=== PATIENT | male | born 1985 | race Caucasian/White ===

== ENCOUNTER → 2024-06-13 07:52 | Outpatient (BNVA) | payer OTHER, SELFPAY | PROVIDERS: Visit Provider Podiatrist Foot & Ankle Surgery | DX: S92.015A Nondisplaced fracture of body of left calcaneus, initial encounter for closed fracture; W17.89XA Other fall from one level to another, initial encounter | CPT/HCPCS: 73650 ==

== ENCOUNTER → 2024-06-26 09:11 | Outpatient (BNVA) | payer OTHER, SELFPAY | PROVIDERS: Visit Provider Podiatrist Foot & Ankle Surgery | DX: S92.015D Nondisplaced fracture of body of left calcaneus, subsequent encounter for fracture with routine healing; W17.89XD Other fall from one level to another, subsequent encounter | CPT/HCPCS: 73650 ==

== ENCOUNTER 2024-06-26 10:43 | Outpatient (CLI) | payer OTHER, SELFPAY | END 2024-06-26 10:44 | disposition home or self-care (01) | LOC: SPT 10:44 | PROVIDERS: Visit Provider Podiatrist Foot & Ankle Surgery | DX: Z46.89 Encounter for fitting and adjustment of other specified devices (principal); S92.002D Unspecified fracture of left calcaneus, subsequent encounter for fracture with routine healing; X58.XXXD Exposure to other specified factors, subsequent encounter | CPT/HCPCS: L4361 ==

== ENCOUNTER → 2024-07-10 14:51 | Outpatient (BNVA) | payer OTHER, SELFPAY | PROVIDERS: Visit Provider Podiatrist Foot & Ankle Surgery | DX: S92.015A Nondisplaced fracture of body of left calcaneus, initial encounter for closed fracture; W17.89XA Other fall from one level to another, initial encounter | CPT/HCPCS: 73650 ==

== ENCOUNTER → 2024-07-24 15:27 | Outpatient (BNVA) | payer OTHER, SELFPAY | PROVIDERS: PCP Nurse Practitioner Family; Visit Provider Podiatrist Foot & Ankle Surgery | DX: S92.015D Nondisplaced fracture of body of left calcaneus, subsequent encounter for fracture with routine healing; W17.89XD Other fall from one level to another, subsequent encounter | CPT/HCPCS: 73650 ==